=== PATIENT | female | born 1965 | race Caucasian/White ===

== ENCOUNTER 2017-08-14 16:14 | Day surgery (SDC) | payer BC ==
[~2017-08-14 16:14] MED LIST: PROPOFOL 200 MG/20 ML VIAL ONE
[2017-08-14] MEDS ORDERED: Fluorouracil 100 MG, Enoxaparin Sodium 25 MG, EPINEPHrine 0.3 MG in Ophthalmic Irrigati... IVPB SCH (16:19)
[2017-08-14] MEDS ORDERED: Cyclopentolate 1% Opth Drop 2 ML BOT ONE (16:26)
[2017-08-14] MEDS ORDERED: Phenylephrine 2.5% Ophth Soln 5 ML BOT ONE (16:26)
[2017-08-14] MEDS ORDERED: Fentanyl 100 MCG/2 ML VIAL ONE (19:24)
--- NOTE | 2017-08-15 04:00 | OP ---
DATE OF SURGERY: 08/14/2017 PREOPERATIVE DIAGNOSIS: Rhegmatogenous retinal detachment, right eye. POSTOPERATIVE DIAGNOSIS: Rhegmatogenous retinal detachment, right eye. PROCEDURE: Pars plana vitrectomy and retinal detachment repair, right eye. SURGEON: Salazar Wilson M.D. ANESTHESIA: General endotracheal anesthesia. COMPLICATIONS: None. PROCEDURE IN DETAIL: The patient was identified in the preoperative holding area. [facility] the planned surgical procedure on the right eye had been obtained. The patient was t ransported to the operative suite where appropriate cardiopulmonary monitoring was established. Loca l anesthesia was obtained using retrobulbar block. General endotracheal anesthesia was initiated. T he patient was prepped and draped in the usual sterile manner for ophthalmic surgery on the right eye . Lid speculum was placed in the right eye. The 25-gauge trocars placed through the conjunctiva and sclera supratemporally, inferotemporally, and supranasally. Infusion line was placed inferotemporal ly. Light pipe and vitreous cutter were inserted into the eye. Core vitrectomy was performed. Spec ial attention was turned to the retinal tear at 2 o'clock holes at 4 and 10 o'clock. Posterior drain retinotomy was created along the 2 o'clock meridian. A 360 laser was placed using endolaser deliver y device. Complete air fluid exchange was performed with 10 minutes being allowed for fluid to drain posteriorly. A 28% sulfur hexafluoride gas was infused into the eye. Trocars were removed. Eye wa s noted to retain pressure well. Retrobulbar Kenalog and subconjunctival Ancef were placed. Atropin e and antibiotic ointment were placed and the eye was patched and shielded. The patient was taken to the postoperative recovery unit in good condition having suffered no immediate perioperative complic ations. DISCHARGE INSTRUCTIONS: The patient was instructed to keep patch and shield on, avoid lifting or kristi ding, and follow up in the morning with Dr. Wilson.
== END 2017-08-14 21:38 | disposition home or self-care (01) ==
LOC: SDC 16:14
PROVIDERS: ATTEND Ophthalmology Retina Specialist
PROC: 08T43ZZ Resection of Right Vitreous, Percutaneous Approach (ICD-10-PCS; principal; 2017-08-14)
DX: H33.021 Retinal detachment with multiple breaks, right eye (principal)
CPT/HCPCS: 67025; J0171; J1650; J2704; J3010; J9190

== ENCOUNTER 2024-01-15 13:51 | Emergency (ER) | payer BC ==
[~2024-01-15 13:51] MED LIST changes: +Iopamidol-370 76% 500 ML MDV (1 ML CHARGE) ONE; -PROPOFOL 200 MG/20 ML VIAL ONE
[2024-01-15 15:29] LABS: #Basophils 0.09 10x3/uL (0.0-0.2); %Basophils 1.5 % (0.0-1.0); %Eosinophils 3.5 % (0.0-10.0); %Monocytes 4.1 % (0.0-10.0); %Neutrophils 59.6 % (42.0-75.0); Hematocrit 41.2 % (36.0-47.0); Hemoglobin 13.5 g/dL (12.0-16.0); Mean Corpuscular HGB CONC 32.8 g/dL (32.0-36.0); Mean Corpuscular Hemoglobin 29.7 pg (27.0-31.0); Mean Corpuscular Volume 90.7 fL (78.0-98.0); Mean Platelet Volume 10.5 fL (7.4-10.4); Platelet Count 328 10x3/uL (130-400); RBC Distribution Width 12.7 % (11.5-14.5); Red Blood Cell (RBC) Count 4.54 mill/uL (4.20-5.40)
[2024-01-15 15:44] LABS: ALT (SGPT) 47 U/L (8-55); AST (SGOT) 37 U/L (5-34); Albumin 3.9 g/dL (3.5-5.0); Alkaline Phosphatase 101 U/L (40-110); Anion Gap 12 mmol/L (10-20); BUN (Urea Nitrogen) 10 mg/dL (9.8-20.1); Bilirubin, Total 0.5 mg/dL (0.2-1.2); Calc. Creatinine Clearance 0 mL/min (70-130); Calcium 9.2 mg/dL (7.8-10.44); Carbon Dioxide 25 mmol/L (22-29); Chloride 109 mmol/L (98-107); Estimated GFR 66; Globulin 3.5 g/dL (2.4-3.5); Glucose 112 mg/dL (70-105); Potassium 3.7 mmol/L (3.5-5.1); Protein, Total 7.4 g/dL (6.0-8.3); Sodium 142 mmol/L (136-145)
[2024-01-15] MEDS ORDERED: Morphine 4 MG/ML VIAL ONE (16:08)
[2024-01-15] MEDS ORDERED: Ketorolac Tromethamine 30 MG (1 mL) VIAL ONE (16:08)
[2024-01-15] MEDS ORDERED: Ondansetron PF 4 MG/2 ML Vial ONE (16:08)
== END 2024-01-15 17:15 | disposition home or self-care (01) ==
LOC: ERS 13:51
DX: S20.212A Contusion of left front wall of thorax, initial encounter (principal); M25.532 Pain in left wrist; W19.XXXA Unspecified fall, initial encounter
CPT/HCPCS: 36415; 74177; 80053; 85025; 96374; 96375; J1885; J2272; J2405; Q9967